=== PATIENT | male | born 1960 | race Hispanic/Latino ===

== ENCOUNTER 2019-01-22 04:56 | Emergency (ER) | payer SELFPAY ==
[2019-01-22] MEDS ORDERED: Ketorolac Tromethamine 30 MG/ML VIAL ONE (05:24)
[2019-01-22 05:28] LABS: #Eosinphils 0.3 thou/uL (0.0-0.7); #Lymphocytes 2.5 thou/uL (1.20-3.40); #Monocytes 0.9 thou/uL (0.11-0.59); #Neutrophils 6.4 thou/uL (1.40-6.50); %Basophils 0.5 % (0.0-1.0); %Eosinophils 2.7 % (0.0-10.0); %Lymphocytes 24.7 % (21.0-51.0); %Monocytes 8.9 % (0.0-10.0); %Neutrophils 63.2 % (42.0-75.0); Hemoglobin 14.9 g/dL (14.0-18.0); Mean Corpuscular HGB CONC 31.8 g/dL (32.0-36.0); Mean Corpuscular Hemoglobin 29.9 pg (27.0-31.0); Mean Corpuscular Volume 94.1 fL (78.0-98.0); Mean Platelet Volume 6.7 fL (7.4-10.4); Platelet Count 317 thou/uL (130-400); RBC Distribution Width 12.3 % (11.5-14.5); Red Blood Cell (RBC) Count 4.99 mill/uL (4.70-6.10); White Blood Cell (WBC) Count 10.1 thou/uL (4.8-10.8)
[2019-01-22 05:49] LABS: CRP (Inflammatory) 0.81 mg/dL (= or < 0.5); Uric Acid 6.7 mg/dL (3.5-7.2)
--- NOTE | 2019-01-22 08:29 | RAD ---
LEFT ELBOW 4 VIEWS: Date: 01/22/19 HISTORY: Left elbow pain. FINDINGS: Radiocapitellar alignment is maintained. Mild osteophytosis. No acute fracture, dislocation, or fluid distention of the joint capsule. Tiny well corticated ossification adjacent to the tip of the corono id process may represent an old ossific avulsion. IMPRESSION: No acute osseous abnormalities are demonstrated. POS: [facility]
== END 2019-01-22 06:41 | disposition home or self-care (01) ==
LOC: ERS 04:56
DX: M25.522 Pain in left elbow (principal); E11.9 Type 2 diabetes mellitus without complications; F17.210 Nicotine dependence, cigarettes, uncomplicated; Z79.4 Long term (current) use of insulin
CPT/HCPCS: 36415; 84550; 85025; 85652; 86140; 96374; J1885